=== PATIENT | male | born 1970 | race Caucasian/White ===

== ENCOUNTER 2016-10-03 18:05 | Emergency (ER) | payer OTHER ==
[~2016-10-03] VITALS: Ht 167.6 cm; Wt 70.9 kg
[~2016-10-03 18:05] MED LIST: CARAFATE100 MG/ML PO; FLUOXETINE HCL20 MG PO; GABAPENTIN300 MG PO; IBUPROFEN800 MG PO; LEVSIN-SL0.125 MG SL; MOBIC15 MG PO; MORPHINE SULFAT15 M1 PO; NO HOME MEDS; PERCOCET 10/1 TABLET PO; PRILOSEC40 MG PO; RANITIDINE HCL150 M1 PO; TRAZODONE HCL50 MG PO; ZANAFLEX2 MG PO
[2016-10-03] MEDS ORDERED: NORCO 5/3251 TABLET PO (20:05)
[2016-10-03] MEDS ORDERED: MOTRIN600 MG PO (20:05)
[2016-10-03 20:37] VITALS: BP 130/72
== END 2016-10-03 20:38 | disposition home or self-care (01) ==
LOC: EME 18:05
DX: S90.31XA Contusion of right foot, initial encounter (principal); W27.8XXA Contact with other nonpowered hand tool, initial encounter; Y92.69 Other specified industrial and construction area as the place of occurrence of the external cause; Y99.0 Civilian activity done for income or pay
CPT/HCPCS: 73630; 99281; 99284